=== PATIENT | female | born 1940 | race Caucasian/White ===

== ENCOUNTER → 2017-06-28 14:04 | Outpatient (CLI) | payer MEDICARE, SELFPAY ==
--- NOTE | 2017-06-28 14:11 | RAD_ITS ---
STUDY: X-RAY - ABDOMEN/PELVIS REASON FOR EXAM: Female, 77 years old. Left lower quadrant pain TECHNIQUE: AP supine and upright views of the abdomen and pelvis. COMPARISON: None. FINDINGS: Normal visualized lung bases. There is an unremarkable bowel gas pattern. There is no demonstrated free abdominal air. The visualized liver, spleen and kidneys are grossly normal in size and morphology. Normal soft tissue structures. There are diffuse degenerative changes of the visualized lumbar spine. RAD/Abd Inc Decub and/or Erect IMPRESSION: Normal x-ray examination of the abdomen and pelvis. Electronically Signed: Ernesto Fenton DO at 23:58 EDT , Service support ,
== END ==
PROVIDERS: Family Provider Family Medicine; PCP Family Medicine; Visit Provider Family Medicine
DX: R10.32 Left lower quadrant pain (principal)
CPT/HCPCS: 74019

== ENCOUNTER → 2017-07-10 17:13 | Outpatient (CLI) | payer MEDICARE, SELFPAY ==
--- NOTE | 2017-07-10 17:16 | CT_ITS ---
STUDY: CT ABDOMEN AND PELVIS WITHOUT CONTRAST REASON FOR EXAM: Female, 77 years old. Left lower quadrant pain RADIATION DOSAGE (If Supplied By Facility): CTDIvol = ( 6.04 ) mGy, DLP = ( 283.89 ) mGycm TECHNIQUE: Transaxial images were obtained from the lower chest to the upper thighs without oral contrast, and without intravenous contrast. Sagittal and coronal images were reconstructed. Individualized dose optimization techniques were used for this CT. COMPARISON: Abdomen radiographs dated June 28, 2017 FINDINGS: There is minimal dependent atelectasis in both lung bases. There is no pleural effusion. The heart is normal in size. The liver is unremarkable. There are surgical clips in the gallbladder fossa consistent with a prior cholecystectomy. The spleen is unremarkable. The pancreas is unremarkable. The adrenal glands are unremarkable. The right kidney is unremarkable. There is no dilatation of the collecting system in the right kidney. The left kidney is unremarkable. There is no dilatation of the collecting system in the left kidney. The stomach is unremarkable. The small bowel is unremarkable. There are diverticula in the distal colon without adjacent stranding. There is non-visualization of the appendix. There are minimal scattered vascular calcifications. 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 The retroperitoneum is unremarkable. There is no free fluid in the abdomen. The urinary bladder is unremarkable. There is absence of the uterus consistent with a prior hysterectomy. There are no abnormal masses in the adnexal regions. There are small phleboliths scattered in the lower pelvis. The soft tissues are unremarkable. There are moderate degenerative changes in the visualized spine. There is moderate levoscoliosis of the lumbar spine. CT/Abdomen/Pelvis without Cont IMPRESSION: No acute abnormalities are seen in the abdomen or pelvis. There are no acute bowel abnormalities. There is diverticulosis of the distal colon. There is no ascites, free air, inflammation or significant lymphadenopathy. Electronically Signed: Jaimee Carmona MD at 2:22 EDT Tel Direct: [phone], Service support ,
== END ==
PROVIDERS: Family Provider Family Medicine; PCP Family Medicine; Visit Provider Family Medicine
DX: K57.30 Diverticulosis of large intestine without perforation or abscess without bleeding (principal); R10.32 Left lower quadrant pain
CPT/HCPCS: 74176

== ENCOUNTER 2020-04-03 10:05 | Outpatient (RCR) | payer MEDICARE, SELFPAY | END 2020-04-03 23:59 | LOC: IMMUN 10:05 | PROVIDERS: PCP Family Medicine; Referring Provider Family Medicine; Visit Provider Family Medicine | DX: Z23 Encounter for immunization (principal) | CPT/HCPCS: 0011A; 0012A ==

== ENCOUNTER 2021-12-16 09:18 | Day surgery (SDC) | payer MEDICARE, SELFPAY ==
[2021-12-16 09:55] VITALS: BP 132/70; PULSE 77; RESP 16; TEMP 36; O2SAT 100; BMI 20.8
[2021-12-16] MEDS: Lactated Ringers 1,000 ML 15 ML IV (10:08)
--- NOTE | 2021-12-16 10:17 | HP.PCM_ITS ---
History and Physical Date of Admission: 12/16/21 Date of Service:? 11/19/21 MR#: [id number] Acct: [id number] Name:ARIN MORENO Rep #: [id number] : 1940 ? ? Provider: Dr. Héctor Tatum MD Age/Sex:? 81/F ? ? Location: [facility] Status: Signed Intake Vital Signs ? 11/19/2208:11 Height 5 ft 4 in Weight: 128 lb BMI 21.9 BP 134/84 H Blood Pressure Location Rt popliteal Position Sitting Respiration 16 Pulse 68 Pulse Source Monitor Temp 96 F L Temp Source Temporal Pulse Oximetry (%) 99 Oxygen Delivery Method room air Intake Visit Reasons:?COLONOSCOPY Chief Complaint: colonoscopy [employer] Required: No Is patient in pain?: No Allergies house dust Allergy (Mild, Verified 11/19/21 09:14) Otherchicken feathers Allergy (Mild, Uncoded 11/19/21 09:14) Other Medications amlodipine 2.5 mg tablet 2.5 mg PO BID 11/19/21 [History Confirmed 11/19/21] folic acid 1 mg tablet 2 mg PO DAILY 11/19/21 [History Confirmed 11/19/21] gemfibrozil 600 mg tablet 600 mg PO BID 11/19/21 [History Confirmed 11/19/21] levothyroxine 75 mcg capsule 75 mcg PO DAILY 11/19/21 [History Confirmed 11/19/21] methotrexate sodium 2.5 mg tablet 17.5 mg PO QWEEK 11/19/21 [History Confirmed 11/19/21] PFSH Family History?(Updated 11/19/21 @ 09:10 by Phoebe Saenz) Mother Diabetes Cancer Arthritis OsteoporosisSister Breast cancer LupusFather HypertensionBrother High cholesterol Social History?(Updated 11/19/21 @ 09:11 by Phoebe Saenz) Smoking Status:? Never smoker alcohol intake:? never substance use type:? does not use HPI HPI HPI: ?Patient is a 81-year-old female who presents for need to schedule surveillance colonoscopy secondary to history of abnormal polyp.? They are referred for surgical consultation from Dr. Cezar eNw.? Patient has had prior colonoscopy.? She confirms her record that she had a prior scope in [address] Joseph.? She does not believe that she has had any prior scopes to this procedure in 2013.? According to his procedure note, a single 3 mm polyp was found at 60 cm from the anal verge and 5-year follow-up was recommended.? Unfortunately does not appear that there is any pathology to reference from this procedure.? Additional scope findings included some scattered diverticula.? Patient has no personal history of diverticulitis, inflammatory bowel disease, or colon cancer. They describe their bowel habits as rather normal initially, but she complains that stool gets right to the end and she cannot push it out.? She questions whether this is related to prior treatment she had for hemorrhoids. They have approximately 1 per day to 2 days.? She states that the stool is initially hard then becomes softer as she passes it.? She admits to spending at least 15 minutes on the toilet with significant straining.? They have not noticed recent bleeding or dark stools.? There is no caliber change with her stools.? They do not regularly take fiber supplements or stool softeners.? They do not consume significant fiber in their regular diet. Patient has no family history of colon cancer, but reports that her sister has been diagnosed previously with diverticulitis.? ? The patient is not prescribed anticoagulants/blood thinners. Relevant prior abdominal/GI surgical history includes: Appendectomy, cholecystectomy, hysterectomy, and hemorrhoids Patient does also report a significant history of reflux/heartburn.? She states this occurs with a frequency of 1-2 times weekly and seems very dependent on her diet.? She states this is quickly remedied with taking a Val-Bessie.? Although she recognizes that the symptoms are dependent on her diet, she denies restricting any food triggers from her diet.? She denies any difficulties with swallowing.? She reports that she drinks tea rather than coffee and limits to this to 1 to 2 cups daily.? She also states that she only eats spicy food when her son cooks.? She reports this to be approximately 3 times weekly.? He recently moved in with them to help with care of her /his father.? She denies any experience of nighttime awakenings and concern for aspiration events. ROS General General: No weight change, appetite, fatigue, colon cancer, breast cancer or weakness HEENT HEENT: Yes eye surgery; No difficulty swallowing, eye injury, swollen glands or hoarseness Endo Endocrine: Yes thyroid disease; No diabetes mellitus, thyroid cancer, Hair loss, heat intolerance or cold intolerance Skin Skin: No rash or changing moles Breast Breast: No left breast lump, right breast lump, nipple discharge, breast pain, abnormal mammogram, abnormal US or breast enlargement Musc Musculoskeletal: Yes arthritis and rheumatoid arthritis; No back problems, gout or joint pain Cardio Cardiovascular: No murmur, pacemaker, heart disease, atrial fibrillation, high blood pressure, heart attack, heart stent, palpitations, shortness of breat with exertion or chest pain Psych Psychiatric: Yes anxiety; No depression or hearing voices Resp Respiratory: No shortness of breath, Yes sleep apnea, Yes cough, No COPD, Yes asthma, No emphysema and No wheezing Gastro Gastrointestinal: No abdominal pain, No nausea or vomiting, No diarrhea, No constipation, No blood in stool, Yes acid reflux, Yes hemorrhoids, No ulcers, No gallbladder problem and No black,tarry stools Paramjit Hematologic: No blood thinners, No blood disorders, No bleeding, No anemia and No blood clots Neuro Neurologic: No system reviewed and no additional complaints, except as docum ented, No as per HPI, No abnormal gait, No abnormal hearing, No abnormal movements, No abnormal speech, No behavioral changes, No burning sensations, No confusion, No convulsions, No disequilibrium, No dizziness, No localized weakness, No frequent falls, No headache(s), No lack of coordination, No loss of vision, No memory loss, No numbness, No other visual disturbances, No radicular pain, No restless legs, No sensory deficit, No syncope, No tingling, No tremor(s), No weakness and No other Exam Const General: cooperative, healthy appearing, comfortable, no acute distress, well developed and well groomed Nutritional Appearance: well nourished Orientation: alert, awake and oriented x3 Resp Effort & Inspection: normal respiratory effort Auscultation: clear to auscultation bilaterally, no rales, no rhonchi and no wheezes GI Inspection: scar (Well-healed Pfannenstiel incision) and no visible herniation Palpation: soft and nontender Assessment and Plan Assessment and Plan (1) Personal history of colonic polyps: ?Status:?Acute ?Comment: This is an 81-year-old female who presents for evaluation prior to scheduling a surveillance colonoscopy that was technically due in 2018 for a finding of polyp during a 2013 screening colonoscopy.? No pathology is available from this procedure and it is unclear whether a biopsy was obtained as the provider indicated only that the lesion was fulgurated.? Patient denies any significant interval change to her GI health, but confirms chronic constipation and heartburn symptoms.? She questions me as to whether I would recommend the scope given her advanced age.? I shared with her that there is no formal official recommendation for this procedure, however, I remarked that she appears to enjoy good health and could easily at this point be expected to live another 10 years.? With this in mind, I provide a conditional recommendation/agreement to proceed with surveillance colonoscopy as has been discussed.? Patient wishes to know whether capsule endoscopy is a better option, to which I have told her this is still far from the gold standard for colon health surveillance and I do recommend colonoscopy over this mode of investigation. ?Plan: Plan will be to complete colonoscopy on first mutually agreeable date under local MAC.? Pre-procedure prep discussed and paper instructions provided.? I would like patient to complete an additional day of clears given her history of constipation.? Patient is also made aware that she will need to have a certified driver examiner with her the day of the procedure. (2) Constipation: ?Status:?Acute ?Comment: Patient with chronic constipation given reports of hard stools and straining with bowel movements.? I have recommended she begin stool softener versus fiber with water.? Additionally, as above would like her to do an additional day of clear liquids with her prep for the planned surveillance colonoscopy. ?Plan: ? [id number]-[id number] stool softener versus supplemental fiber (3) Chronic heartburn: ?Status:?Acute ?Comment: Patient describes occasional heartburn, but confesses this is entirely dependent on her diet.? She had EGD with prior scope in 2013 that simply showed reactive gastropathy on random antral biopsy.? She denies any alarming features such as swallowing difficulties.? I have therefore encouraged her to make some lifestyle changes with limiting trigger foods including those that are spicy and those that contain caffeine.? I have also reiterated the need to maximize the time between mealtime and lying flat for return to bed.? Patient expresses understanding of this information. ?Plan: ? Recommended lifestyle changes and dietary restrictions.? Not currently convinced patient requires simultaneous EGD with planned surveillance colonoscopy given other benign prior EGD findings. I have examined the patient and the H&P has been reviewed. There are no clinical changes since date of exam. Patient confirms she completed her bowel prep and her output is now clear. She denies any questions. We will plan to proceed for surveillance colonoscopy as previously discussed.
[2021-12-16 11:05] VITALS: BP 108/58; BP 132/70; PULSE 71; RESP 16; TEMP 36.5; O2SAT 100
[2021-12-16 11:10] VITALS: BP 132/70; BP 96/76; PULSE 69; RESP 16; O2SAT 98
--- NOTE | 2021-12-16 11:10 | OP.COLON_ITS ---
Patient Name: Radha Clayton Procedure Date: 12/16/2021 10:09 AM Date of : 1940 Age: 81 Procedure: Colonoscopy Indications: High risk colon cancer surveillance: Personal history of colonic polyps Providers: Héctor Tatum MD Medicines: See the Anesthesia note for documentation of the administered medications Patient Profile: Refer to note in patient chart for documentation of history and physical. Last Colonoscopy: 2012. Complications: No immediate complications. Estimated blood loss: None. Procedure: Pre-Anesthesia Assessment: - The heart rate, respiratory rate, oxygen saturations, blood pressure, adequacy of pulmonary ventilation, and response to care were monitored throughout the procedure. After I obtained informed consent, the scope was passed under direct vision. Throughout the procedure, the patient's blood pressure, pulse, and oxygen saturations were monitored continuously. The Colonoscope was introduced through the anus and advanced to the cecum, identified by appendiceal orifice and ileocecal valve. The colonoscopy was performed without difficulty. The patient tolerated the procedure well. The quality of the bowel preparation was adequate to identify polyps. Scope In: 10:33:57 AM Scope Withdrawal Time 0 hours 15 minutes 38 seconds Scope Out: 11:00:12 AM Total Procedure Duration Time 0 hours 26 minutes 15 seconds Findings: Skin tags were found on perianal exam. Many small and large-mouthed diverticula were found in the sigmoid colon, descending colon and transverse colon. No biopsies or other specimens were collected for this exam. The exam was otherwise without abnormality on direct and retroflexion views. Impression: - Perianal skin tags found on perianal exam. - Diverticulosis in the sigmoid colon, in the descending colon and in the transverse colon. No specimens collected. - The examination was otherwise normal on direct and retroflexion views. Recommendation: - Discharge patient to home (via wheelchair). - High fiber diet today. - Continue present medications. - Telephone my office for study results in 5 days. - No repeat colonoscopy due to age. Procedure Code(s): --- Professional --- G0105, Colorectal cancer screening; colonoscopy on individual at high risk Diagnosis Code(s): --- Professional --- Z86.010, Personal history of colonic polyps K64.4, Residual hemorrhoidal skin tags K57.30, Diverticulosis of large intestine without perforation or abscess without bleeding CPT copyright 2017 [employer]. All rights reserved. The codes documented in this report are preliminary and upon medical records coder review may be revised to meet current compliance requirements. Héctor Tatum MD 12/16/2021 11:09:58 AM This report has been signed electronically. Number of Addenda: 0 Note Initiated On: 12/16/2021 10:09 AM
--- NOTE | 2021-12-16 11:11 | OP.CCLET_ITS ---
12/16/2021 Cezar New [address] [place] [address] Re : Colonoscopy procedure for Radha Clayton Dear Dr. New This procedure was performed on November. My impressions and recommendations are as follows: Impressions : - Perianal skin tags found on perianal exam. - Diverticulosis in the sigmoid colon, in the descending colon and in the transverse colon. No specimens collected. - The examination was otherwise normal on direct and retroflexion views. Recommendations : - Discharge patient to home (via wheelchair). - High fiber diet today. - Continue present medications. - Telephone my office for study results in 5 days. - No repeat colonoscopy due to age. My findings are described in the full procedure note, which is enclosed. If I can be of further assistance, please feel free to contact me at Doctor phone number(s): , Work: . Sincerely, Héctor Tatum MD 12/16/2021 11:09:58 AM This report has been signed electronically.
[2021-12-16 11:15] VITALS: BP 124/66; BP 132/70; PULSE 69; RESP 18; O2SAT 99
[2021-12-16 11:20] VITALS: BP 128/73; BP 132/70; PULSE 64; RESP 18; TEMP 36.2; O2SAT 100
[2021-12-16 11:46] VITALS: BP 132/70
== END 2021-12-16 11:52 | disposition home or self-care (01) ==
LOC: EN 09:23 → AC 09:24
PROVIDERS: PCP Family Medicine; Referring Provider Family Medicine; Visit Provider Surgery
PROC: 0DJD8ZZ Inspection of Lower Intestinal Tract, Via Natural or Artificial Opening Endoscopic (ICD-10-PCS; CPT 45378; principal; 2021-12-16 10:25)
DX: Z12.11 Encounter for screening for malignant neoplasm of colon (principal); M06.9 Rheumatoid arthritis, unspecified; K57.30 Diverticulosis of large intestine without perforation or abscess without bleeding; K64.4 Residual hemorrhoidal skin tags; K59.09 Other constipation; K21.9 Gastro-esophageal reflux disease without esophagitis; I10 Essential (primary) hypertension; E78.00 Pure hypercholesterolemia, unspecified; E07.9 Disorder of thyroid, unspecified; Z79.899 Other long term (current) drug therapy; Z86.010 Personal history of colon polyps; Z83.79 Family history of other diseases of the digestive system
CPT/HCPCS: G0105; J7120

== ENCOUNTER → 2021-12-21 | Outpatient (CLI) | payer MEDICARE, SELFPAY ==
--- NOTE | 2021-12-21 10:25 | BI_ITS ---
MAMMOGRAPHY - BILATERAL SCREENING REASON FOR EXAM: Female, 81 years old. Routine annual screening examination. PERTINENT HISTORY: Sister with breast cancer. TECHNIQUE: Digital bilateral breast anahi (3D mammographic acquisition) in the CC and MLO projections. 2-D mediolateral oblique (MLO) and craniocaudad (CC) views of both breasts were obtained. CAD: Full Field Digital Mammography with Computer Added Detection was performed. COMPARISON: Comparison is made with prior study dated 09/15/2010. FINDINGS: Breast Composition: There are scattered areas of fibroglandular density. There are no dominant masses or suspicious calcifications. Small benign-appearing bilateral axillary lymph nodes. No other significant abnormalities are identified. There has been no significant change since the prior study. BI/SCRN MAMM (CAD)W/ANAHI BILAT IMPRESSION: Stable bilateral screening mammogram. Yearly follow-up mammogram recommended. (A) ASSESSMENT CATEGORY: BIRADS Category 2: Benign. A letter regarding these results will be sent to the patient by the facility within 30 days. Approximately 10% of breast cancers are not detected by mammography. A normal mammogram should not delay biopsy of a clinically suspicious abnormality. [id number] Electronically Signed: Anupam Jeffries MD at 12:40 EDT ,
--- NOTE | 2021-12-21 10:34 | BD_ITS ---
STUDY: DUAL ENERGY X-RAY ABSORPTIOMETRY / DXA REASON FOR EXAM: Female, 81 years old. [id number] TECHNIQUE: Bone Mineral Density (BMD) measurements of lumbar spine and bilateral hips were obtained. COMPARISON: Comparison is made with prior study 09/15/2010. FINDINGS: Lumbar Spine (L1-L4): g/cm2 (1.056) / T-score (0.2) / Z-score (3.0) Findings are suggestive of normal bone density with a low fracture risk. Left Femur Total: g/cm2 (0.858) / T-score (-0.7) / Z-score (1.6) Left Femoral Neck: g/cm2 (0.905) / T-score (0.5) / Z-score (3.0) Right Femur Total: g/cm2 (0.818) / T-score (-1.0) / Z-score (1.2) Right Femoral Neck: g/cm2 (0.864) / T-score (0.1) / Z-score (2.6) The T-Scores on the most recent prior examination were: Lumbar Spine (L1-L4): There has been worsening of bone density since the previous examination. Left Femur Total: which represents a worsening of 22.9%. Right Femur Total: which represents a worsening of 26.4%. BD/Dexa Bone Density Study IMPRESSION: The patient is considered normal as outlined below according to World Radu Organization (WHO) criteria with a low fracture risk. There has been worsening of bone density since the previous examination. Reference Information: The T-score is the number of standard deviations above or below the standard which is normal for young adults at their peak bone mineral density. The World Health Organization (WHO) interprets the T-scores as follows: Above -1 Normal bone density Between -1 and -2.5 Osteopenia Equal to / or below -2.5 Osteoporosis As a practical clinical guideline, osteopenia may be graded as follows: Mild -1 through -1.5 Moderate -1.6 through -2.0 Severe -2.1 through -2.4 The Z-score is the number of standard deviations above or below age-matched controls. A Z-score of less than -1.5 would be considered abnormal. References: 1. NIH Osteoporosis and Related Bone Diseases www osteo.org 2. International Society for Clinical Densitometry www iscd.org 3. National Osteoporosis Foundation www nof.org Electronically Signed: Anupam Jeffries MD at 9:18 EDT ,
== END | disposition home or self-care (01) ==
PROVIDERS: PCP Family Medicine; Referring Provider Family Medicine; Visit Provider Family Medicine
DX: Z13.820 Encounter for screening for osteoporosis (principal); Z78.0 Asymptomatic menopausal state; Z12.31 Encounter for screening mammogram for malignant neoplasm of breast; Z80.3 Family history of malignant neoplasm of breast
CPT/HCPCS: 77063; 77067; 77080

== ENCOUNTER → 2022-08-02 | Outpatient (CLI) | payer MEDICARE, SELFPAY ==
--- NOTE | 2022-08-02 14:47 | RAD_ITS ---
STUDY: X-RAY CHEST REASON FOR EXAM: Female, 82 years old. Chronic bronchitis. TECHNIQUE: PA and lateral views of the chest. COMPARISON: December 10, 2012. FINDINGS: The lungs are clear and expanded. There is no demonstrated pleural abnormality. Normal size heart. Normal mediastinum and jeri. Normal visualized pulmonary arteries. Normal visualized aortic arch and descending thoracic aorta. There is dextroscoliosis and degenerative changes of the lumbar spine. There is degenerative osteoarthritis of the bilateral shoulders. There is no demonstrated abnormality of the visualized soft tissue structures of the upper abdomen. RAD/Chest PA and Lateral IMPRESSION: No acute cardiopulmonary disease or major interval change. Electronically Signed: Donavon Nuñez DO at 16:59 EDT ,
== END | disposition home or self-care (01) ==
LOC: MTRAD 14:45
PROVIDERS: PCP Family Medicine; Referring Provider Family Medicine; Visit Provider Family Medicine
DX: J42 Unspecified chronic bronchitis (principal)
CPT/HCPCS: 71046

== ENCOUNTER → 2024-08-20 | Outpatient (CLI) | payer MEDICARE, SELFPAY ==
--- NOTE | 2024-08-20 10:13 | RAD_ITS ---
PROCEDURE: CHEST PA AND LATERAL 08/20/2024 REASON FOR EXAM: RHEUMATOID ARTHRITIS, UNSPECIFIED TECHNIQUE: CHEST PA AND LATERAL COMPARISON: 08/03/2022. FINDINGS: The heart is normal in size. Mild left basilar atelectasis. Scoliosis. RAD/Chest PA and Lateral IMPRESSION: Mild left basilar atelectasis. Reading Location: [place] [id number]
== END | disposition home or self-care (01) ==
PROVIDERS: PCP Family Medicine; Referring Provider Family Medicine; Visit Provider Family Medicine
DX: M06.9 Rheumatoid arthritis, unspecified (principal)
CPT/HCPCS: 71046